=== PATIENT | male | born 1985 | race Caucasian/White ===

== ENCOUNTER 2021-01-18 11:08 | Emergency (ER) | payer OTHER, BC, SELFPAY ==
[2021-01-18 11:22] VITALS: BP 159/100; PULSE 78; RESP 20; TEMP 36.3; O2SAT 100
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
== END 2021-01-18 11:35 | disposition home or self-care (01) ==
PROVIDERS: Emergency Provider Nurse Practitioner
DX: S39.012A Strain of muscle, fascia and tendon of lower back, initial encounter (principal); S29.019A Strain of muscle and tendon of unspecified wall of thorax, initial encounter; E66.9 Obesity, unspecified; V49.40XA Driver injured in collision with unspecified motor vehicles in traffic accident, initial encounter
CPT/HCPCS: 99282